=== PATIENT | female | born 1995 | race American Indian/Alaskan Native ===

== ENCOUNTER 2020-01-13 11:55 | Inpatient (IN) | payer OTHER, MEDICAID ==
--- NOTE | 2020-01-13 16:31 | Ultrasound Report ---
US OB BPP wo non-stress, US OB limited INDICATION / CLINICAL INFORMATION: BPP BELL AFW. COMPARISON: None available. FINDINGS: breathing movement = 2 Gross body movement = 2 tone = 2 Qualitative amniotic fluid volume = 2 Total biophysical score = 8/8 Amniotic fluid index is 6.8 cm. Presentation is Cephalic. heart rate is 154 beats per minute. IMPRESSION: 1. biophysical profile = 8/8 2. Amniotic fluid index is 6.8 cm which is at the lower limits of normal. Signer Name: Delonte Perdue MD Signed: 01/13/2020 4:26 PM Workstation Name: [id number]
[2020-01-13] MEDS ORDERED: TERBUTALINE 1 MG/1 ML INJ SUB-Q PRN ×2 (17:29→19:53)
[2020-01-13] MEDS ORDERED: MINERAL OIL 30 ML ORAL LIQD PO PRN ×2 (17:29→19:53)
[2020-01-13 18:37] LABS: Hematocrit 39.2 % (30.3-42.9); Hemoglobin 13.3 gm/dl (10.1-14.3); Mean Corpuscular HGB Conc 34 % (30-34); Mean Corpuscular Volume 86 fl (79-97); Platelet Count 231 K/mm3 (140-440); Red Blood Count 4.58 M/mm3 (3.65-5.03); Red Cell Distribution Width 16.5 % (13.2-15.2)
[2020-01-13] MEDS ORDERED: LACTATED RINGERS 1,000 ML ONE (18:44)
[2020-01-13] MEDS ORDERED: BICITRA ORAL LIQD 30ML PO ONE (19:26)
[2020-01-13] MEDS ORDERED: FAMOTIDINE 20 MG/2 ML INJ IV ONE (19:26)
--- NOTE | 2020-01-13 19:29 | History and Physical Report ---
History of Present Illness Date of examination: 01/13/20 Date of admission: 01/13/2020 Chief complaint: Presents from the office due to decelerations auscultated during return OB visit today. History of present illness: Early entry to care at 10 2/7 Weeks, course complicated by a Cervical Polyp, abnormal pap smear, Anemia, Low Vitamin D, and a abnormal 1hour GTT, followed by a normal 3 hour GTT. Also HSV II positive (taking Valtrex suppression). 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), chlamydia, herpes, trichomonas Family/Genetic History: hypertension Social history: no significant social history, single - Obstetrical History Expected Date of Delivery: 01/16/20 Actual Gestation: 39 Week(s) 4 Day(s) : 2 Para: 1 Hx # Term Pregnancies: 1 Number of Living Children: 1 #1 Infant Gender: Female year: Method of Delivery: Vaginal Gestational age at delivery: 40 Complications: other (PIH) Medications and Allergies Allergies Allergy/AdvReac Type Severity Reaction Status Date / Time No Known Allergies Allergy Unverified 02/24/15 17:46 Home Medications Medication Instructions Recorded Confirmed Last Taken Type Ferrous Sulfate [Feosol 325 MG tab] 325 mg PO TID #90 tablet 02/26/15 01/13/20 Unknown Rx Active Meds: Active Medications Mineral Oil (Mineral Oil) 30 ml PO QHS PRN PRN Reason: Constipation Terbutaline Sulfate (Brethine) 0.25 mg SUB-Q ONCE PRN PRN Reason: Hyperstimulation/Hypertonicity Review of Systems All systems: negative - Vital Signs Vital signs: Vital Signs Temp Pulse Resp BP Pulse Ox 98.6 F 97 H 19 133/79 98 01/13/20 11:55 01/13/20 11:55 01/13/20 11:55 01/13/20 11:55 01/13/20 11:55 Temp Pulse Resp BP Pulse Ox 97.6 F 100 H 12 117/56 97 01/13/20 17:39 01/13/20 19:13 01/13/20 19:10 01/13/20 19:13 01/13/20 14:16 - Physical Exam Breasts: Positive: normal Cardiovascular: Regular rate Lungs: Positive: Clear to auscultation, Normal air movement Abdomen: Positive: normal appearance, soft, normal bowel sounds Genitourinary (Female): Positive: normal external genitalia, normal perenium Vagina: Positive: normal moisture Uterus: Positive: enlarged Anus/Rectum: Positive: normal perianal skin Extremities: Positive: normal - Obstetrical FHR: category 2 FHR comments: FHR: 130s, moderate varability, +accels, spontaneous decels down to the 60s lasting 1-2 minutes Uterine Contraction Monitor Mode: Internal Cervical Dilatation: 1 (Moderate amount of clear fluid upon AROM at 1848) Cervical Effacement Percentage: 20 station: -4 Uterine Contraction Pattern: Irregular Uterine Tone Measurement Phase: Resting Uterine Contraction Intensity: Mild Results Result Diagrams: 01/13/20 17:13 Abnormal lab results 01/13/20 Range/Units 17:13 RDW 16.5 H (13.2-15.2) % All other labs normal. Assessment and Plan A: IUP @ 39 4/7 Weeks Category II Tracing Spontaneous Bradycardias (currently resolved) Low BELL (6.8cm) GBS Positive P: Admit to L&D Per Routine Orders BPP with BELL AROM Internals X2 Dr. Paulino Consulted Recommends Delivery by
[2020-01-13] MEDS ORDERED: DEXMEDETOMIDINE 200 MCG/2 ML VIAL IV ONE (19:40)
[2020-01-13] MEDS ORDERED: ONDANSETRON 4 MG/2 ML INJ ONE (19:40)
[2020-01-13] MEDS ORDERED: KETOROLAC 30 MG/1 ML INJ ONE (19:40)
[2020-01-13] MEDS ORDERED: ePHEDrine SULFATE 50 MG/1 ML INJ ONE (19:40)
[2020-01-13] MEDS ORDERED: BUPIVACAINE /DEX-WATER 0.75% (2 ML) AMPULE INFILTRATI ONE (19:49)
[2020-01-13] MEDS ORDERED: ePHEDrine SULFATE 50 MG/1 ML INJ IV PRN (19:53)
[2020-01-13] MEDS ORDERED: LIDOCAINE (2%) 20 MG/1 ML VIAL 20 ML MDV INFILTRATI ONE (19:53)
[2020-01-13] MEDS ORDERED: LACTATED RINGERS 1000 ML IV SOLN IV SCH (20:00)
[2020-01-13] MEDS ORDERED: OXYTOCIN DRIP 30 UNITS/500 ML BAG IV SCH ×3 (20:00)
[2020-01-13] MEDS ORDERED: PHENYLEPHRINE/NS 1,000 MCG/10 ML SYRINGE (OR USE) IV ONE (20:00)
[2020-01-13] MEDS ORDERED: ceFAZolin/Water 2 GM/20 ML 2 GM/20 ML SYRINGE IV NR (20:00)
[2020-01-13] MEDS ORDERED: LACTATED RINGERS 1,000 ML IV SCH ×2 (20:00)
[2020-01-13] MEDS ORDERED: ceFAZolin/STERILE WATER 2 GM/20 ML SYRINGE IV NR (20:00)
[2020-01-13] MEDS ORDERED: METOCLOPRAMIDE 10 MG/2 ML INJ IV NR (20:00)
--- NOTE | 2020-01-13 20:16 | Event Note ---
Date: 01/13/20 [facility] remote from delivery plan for operative delivery informed consent obtained Girish Paulino MD
--- NOTE | 2020-01-13 20:27 | Procedure Note ---
OB Delivery Note - Delivery Date of Delivery: 01/13/20 Surgeon: NADINE DAMIAN Estimated blood loss: 500cc - Section Preop diagnosis: nonreassuring FHR tracing, other (remote from delivery) section procedure: primary low transverse Disposition: PACU Complications: none Narrative: Preop diagnosis: IUP at term, NRFHT remote from delivery Postop diagnosis: Same, baby in oblique presentation Procedure: Primary low transverse section via Pfannenstiel incision Surgeon: Dr. Nadine Damian Anesthesia spinal Complications none EBL 500ml IV fluids 1000mL Urine output 100mL, clear Drains López to gravity Findings: Viable male with weight 2824gms and 9/9, normal uterus tubes and ovaries bilaterally Procedure: Patient was consented in 2010, taken to the operating room where she received excellent spinal anesthesia. She was then placed in the dorsal supine position with a leftward tilt. The abdomen was prepped and draped in a sterile fashion, and a timeout was verified. Adequate anesthesia was confirmed prior to the skin incision. A Pfannenstiel skin incision was made with a scalpel taken down to the underlying structures and the fascia was incised in the midline. The incision was extended laterally with curved Renee scissors, the superior and inferior aspects of the fascial incisions were grasped with Mateus clamps and the rectus muscles dissected sharply. The abdomen was entered bluntly in the midline carried down inferiorly with good visualization of the bladder. The vesicouterine peritoneum was tented with Emirati forceps and incised in the midline with Metzenbaum scissors and the vesicouterine peritoneum taken down sharply. Bladder blade was inserted, the uterine incision was made sharply with a scalpel. The inferior and superior aspect of the uterine incisions were extended bluntly, the baby's head was delivered atraumatically with a VACUUM assist. The remainder of the delivery was atraumatic. The cord was clamped and cut and baby handed to waiting NICU team. An intact placenta with three-vessel cord delivered manually. The uterus was then cleared of all clots and debris and the uterus exteriorized. The uterine incision was closed with 3 layers of 0 vicryl with excellent hemostasis. The abdomen was then irrigated with warm normal saline and the uterus placed back into the abdomen atraumatically. A second look at the uterine incision and ensured hemostasis. The peritoneum was closed with 3-0 Vicryl, the rectus muscles approximated with 3-0 Vicryl, and the fascia closed with 0 Vicryl in the usual fashion. The subcuticular structures were closed with interrupted sutures of 3-0 Vicryl and the skin closed with 4-0 Monocryl. A pressure dressing was applied. All sponge needle and instrument counts were correct x2. There were no complications. Mom and baby to recovery in stable condition. EBL 500 mL Girish Damian MD - A at 1 minute: 9 at 5 minutes: 9 Gender: Male (weight 2824gms)
[2020-01-13] MEDS ORDERED: diphenhydrAMINE 50 MG/ML VIAL IV PRN (20:40)
[2020-01-13] MEDS ORDERED: MORPHINE 4 MG/1 ML INJ IV PRN ×2 (20:40→22:07)
[2020-01-13] MEDS ORDERED: ONDANSETRON 4 MG/2 ML INJ IV PRN ×2 (20:40→22:07)
[2020-01-13] MEDS ORDERED: NALOXONE 0.4 MG/1 ML INJ IV PRN ×2 (20:40→22:07)
[2020-01-13] MEDS ORDERED: HYDROmorphone 1 MG/1 ML INJ IV PRN (20:40)
[2020-01-13] MEDS ORDERED: PROMETHAZINE 25 MG TAB PO PRN (20:40)
[2020-01-13] MEDS ORDERED: NalbUPHINE 10 MG/1 ML INJ IV PRN (20:40)
[2020-01-13] MEDS ORDERED: PROMETHAZINE 25 MG RECT SUPP PR PRN (20:40)
[2020-01-13] MEDS ORDERED: KETOROLAC 30 MG/1 ML INJ IV ONE (21:08)
[2020-01-13] MEDS ORDERED: ONDANSETRON 4 MG/2 ML INJ IV ONE (21:08)
[2020-01-13] MEDS ORDERED: ePHEDrine SULFATE 50 MG/1 ML INJ IV ONE (21:15)
[2020-01-13] MEDS ORDERED: OXYTOCIN 10 UNIT/1 ML INJ ONE (21:16)
[2020-01-13] MEDS ORDERED: fentaNYL 100 MCG/2 ML INJ ONE (21:37)
[2020-01-13] MEDS ORDERED: LANOLIN/ZINC/DIMETHICONE (LANSINOH) 7 GM TP PRN (22:07)
[2020-01-13] MEDS ORDERED: SIMETHICONE 80 MG CHEW TAB PO PRN (22:07)
[2020-01-13] MEDS ORDERED: MORPHINE 2 MG/1 ML INJ IV PRN (22:07)
[2020-01-13] MEDS ORDERED: WITCH HAZEL/ GLYCERIN PAD TP PRN (22:07)
[2020-01-13] MEDS ORDERED: HYDROcodone/ACETAMINOPHEN 5-325 MG TAB PO PRN (22:07)
[2020-01-13] MEDS ORDERED: MAGNESIUM HYDROXIDE (MOM) ORAL LIQD UDC PO PRN (22:07)
[2020-01-13] MEDS ORDERED: CLINDAMYCIN 600 MG/50 mL 600 MG/50 ML BAG IV ONE (22:09)
--- NOTE | 2020-01-13 22:22 | Anesthesia Consultation ---
Anesthesia Consult and Med Hx Date of service: 01/13/20 - Airway Anesthetic Teeth Evaluation: Good ROM Head & Neck: Adequate Mental/Hyoid Distance: Adequate Mallampati Class: Class II Intubation Access Assessment: Good - Pulmonary Exam CTA: Yes - Cardiac Exam Cardiac Exam: RRR - Pre-Operative Health Status ASA Pre-Surgery Classification: ASA2, Emergency Proposed Anesthetic Plan: Spinal - Pulmonary Hx Smoking: No Hx Asthma: No COPD: No Hx Pneumonia: No Hx Sleep Apnea: No - Cardiovascular System Hx Hypertension: No Hx Heart Attack/AMI: No - Central Nervous System Hx Seizures: No Hx Psychiatric Problems: No - Gastrointestinal Hx Gastroesophageal Reflux Disease: No - Endocrine Hx Renal Disease: No Hx End Stage Renal Disease: No Hx Insulin Dependent Diabetes: No Hx Non-Insulin Dependent Diabetes: No Hx Hypothyroidism: No Hx Hyperthyroidism: No - Hematic Hx Anemia: Yes Hx Sickle Cell Disease: No - Other Systems Hx Alcohol Use: No
--- NOTE | 2020-01-13 22:22 | Anesthesia Day of Surgery ---
Anesthesia Day of Surgery - Day of Surgery Patient Examined: Yes Patient H&P Reviewed: Yes Patient is NPO: Yes Beta Blockers: No Cardiac Clearance: No Pulmonary Clearance: No Usama's Test: N/A
--- NOTE | 2020-01-13 22:23 | Progress Note ---
Spinal Anesthesia Block - Spinal Anesthesia Block Start Time: 20:55 Stop Time: 21:10 Performed by:: JOSE ANGEL HARRINGTON Procedure: Spinal anesthesia block is being performed for [C/S]. H&P, labs have been reviewed. Patient's questions and concerns have been answered. Informed consent has been performed. Timeout has was performed. Patient in sitting position on side of bed. Sterile prep and drape was performed. 3 mL 1% lidocaine skin wheal at L [3]-L [4]. Needle introducer advanced. 25-gauge spinal needle advanced, [+] CSF [-] blood. [Marcaine 10.5mg and Precedex 5mcg] Spinal dose was given. All needles removed. Patient tolerated procedure well.
[2020-01-14] MEDS ORDERED: D5W/LACTATED RINGERS 1,000 ML IV SCH (06:45)
[2020-01-14 12:44] LABS: Hematocrit 35.4 % (30.3-42.9); Hemoglobin 11.6 gm/dl (10.1-14.3)
[2020-01-14] MEDS: oxyCODONE /ACETAMINOPHEN 5-325MG TAB PO PRN ×2 (15:18→21:19)
--- NOTE | 2020-01-14 21:56 | Post Anesthesia Evaluation ---
- Post Anesthesia Evaluation Patient Participated: Yes Airway Patent: Yes Stable Respiratory Function: Yes Nausea/Vomiting: No Temp > 96.8F: Yes Pain Manageable: Yes Adequeate Hydration: Yes Anesthesia Complications: No Block Receding Appropriately: Yes Patient on Ventilator: No
[2020-01-15] MEDS: oxyCODONE /ACETAMINOPHEN 5-325MG TAB PO PRN ×2 (04:22→16:58)
[2020-01-15] MEDS: IBUPROFEN 800 MG TAB PO PRN ×2 (08:50→22:22)
--- NOTE | 2020-01-15 10:33 | Progress Note ---
Assessment and Plan - Patient Problems (1) Status post primary low transverse section Current Visit: Yes Status: Acute Plan to address problem: Continue routine PP orders Ambulate in hallways, increase water intake to facilitate movement of flatus Anticipate d/c home tomorrow if passing flatus Subjective - Subjective Date of service: 01/15/20 Principal diagnosis: S/P primary C/S; POD #2 Interval history: See admission H & P; OB operative note and PP progress notes Patient reports: appetite normal, voiding normally, pain well controlled (with medications), ambulating normally, no flatus, no bowel movement : doing well, bottle feeding Objective - Vital Signs Latest vital signs: Vital Signs Temp Pulse Resp BP BP Pulse Ox 01/15/20 08:50 18 01/15/20 08:41 98.5 F 111 H 18 118/79 98 01/14/20 20:44 98.5 F 107 H 20 110/74 99 01/14/20 16:10 98.1 F 101 H 20 101/61 01/14/20 11:15 97.2 F L 102 H 20 124/75 Intake and Output 01/14/20 01/15/20 01/15/20 23:59 07:59 15:59 Intake Total 680 Balance 680 Intake: Oral 680 Other: Total, Intake Amount 320 - Exam Breasts: Present: normal Cardiovascular: Present: Regular rate Lungs: Present: Normal air movement Abdomen: Present: soft, tenderness Uterus: Present: firm, fundal height below umbilicus (U-2) Extremities: Present: normal Deep Tendon Reflex Grade: Normal +2 Incision: Present: dry, intact (steri-strips intact, no drainage or bleeding noted)
--- NOTE | 2020-01-15 10:35 | Discharge Summary ---
Providers - Providers Date of Admission: 01/13/20 19:53 Date of discharge: 01/16/20 Attending physician: NADINE DAMIAN MD Primary care physician: NADINE DAMIAN MD Hospitalization Reason for admission: active labor Delivery: Procedure: primary low transverse Episiotomy: none Laceration: none Incision: dry, intact (steri-strips intact, no drainage or bleeding noted) Other procedures: none complications: none Discharge diagnosis: IUP at term delivered Stanley baby: male Hospital course: See admission H & P; OB operative note and PP progress notes Condition at discharge: Stable Disposition: DC-01 TO HOME OR SELFCARE - Discharge Diagnoses (1) Status post primary low transverse section Status: Acute Plan - Discharge Medications Prescriptions: Ibuprofen [Motrin] 600 mg PO Q8H PRN #60 tablet PRN Reason: Pain oxyCODONE /ACETAMINOPHEN [Percocet 5/325] 1 tab PO Q6HR PRN #20 tablet PRN Reason: Pain - Provider Discharge Summary Activity: routine, no sex for 6 weeks, no heavy lifting 4 weeks, no strenuous exercise Diet: other (Iron rich diet) Instructions: routine Additional instructions: [] Smoking cessation referral if applicable(refer to patient education folder for contact #) [] Refer to [facility] Booklet Call your doctor immediately for: * Fever > 100.5 * Heavy vaginal bleeding ( >1 pad per hour) * Severe persistent headache * Shortness of breath * Reddened, hot, painful area to leg or breast * Drainage or odor from incision. * Keep incision clean and dry at all times and follow doctor's instructions regarding bathing/showering - Follow up plan Follow up: NADINE DAMIAN MD [Primary Care Provider] - 7 Days
[2020-01-16] MEDS: oxyCODONE /ACETAMINOPHEN 5-325MG TAB PO PRN ×3 (00:45→12:20)
[2020-01-16 13:17] VITALS: BP 136/78
== END 2020-01-16 14:00 | disposition home or self-care (01) | DRG 788 ==
LOC: APU 11:55 → TRG 11:55 → LD 17:26 → TRG 19:53 → LD 19:53 → OB 01-14 00:06
PROVIDERS: ADMIT Obstetrics & Gynecology; ATTEND Obstetrics & Gynecology
PROC: 10D00Z1 Extraction of Products of Conception, Low, Open Approach (ICD-10-PCS; principal; 2020-01-13)
PROC: 3E0R3BZ Introduction of Anesthetic Agent into Spinal Canal, Percutaneous Approach (ICD-10-PCS; 2020-01-13)
DX: O76 Abnormality in fetal heart rate and rhythm complicating labor and delivery (principal); Z37.0 Single live birth; O99.824 Streptococcus B carrier state complicating childbirth; O32.2XX0 Maternal care for transverse and oblique lie, not applicable or unspecified; Z20.828 Contact with and (suspected) exposure to other viral communicable diseases; Z3A.39 39 weeks gestation of pregnancy
CPT/HCPCS: 36415; 76815; 76819; 85014; 85018; 85027; 86592; 88307; G0378; J1170; J1885; J2270; J2370; J2405; J2590; J2765; J3010; J3490; J7121; U0003